=== PATIENT | male | born 1960 | race Caucasian/White ===

== ENCOUNTER 2018-03-31 14:57 | Inpatient (IN) ==
[2018-03-31] MEDS ORDERED: *HR* Heparin 5,000 UNIT/ML VIAL IVP ONE (20:55)
[2018-03-31] MEDS ORDERED: Dextrose Gel 15 GM/37.5 ML TUBE PO PRN ×2 (20:55)
[2018-03-31] MEDS ORDERED: *HR* Dextrose 50 % in Water (Syg) 50 ML SYRINGE IVP PRN (20:55)
[2018-03-31] MEDS ORDERED: *HR* Heparin 5,000 UNIT/ML VIAL IVP PRN ×2 (20:55)
[2018-03-31] MEDS ORDERED: D5% in Water 1,000 ML IVC PRN (20:55)
[2018-03-31] MEDS ORDERED: Nitroglycerin 0.4 MG TAB.SUBL SL PRN (21:04)
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
[2018-03-31] MEDS: Heparin 25,000 UNIT/500 ML D5W 25,000 UNIT/500 ML BAG IVC SCH (22:46)
[2018-04-01] MEDS: Insulin LISPRO 300 UNITS/3 ML VIAL SQ SCH ×5 (01:21→21:00)
[2018-04-01 05:10] LABS: Basophils % 0.3 %; Eosinophils # 0.1 K/mcL (0.0-0.6); Eosinophils % 1.8 %; Hematocrit 41.2 % (37.5-50.1); Immature Granulocytes % 0.4 % (0-4); Lymphocytes # 1.2 K/mcL (0.6-4.6); Lymphocytes % 16.1 %; Mean Corpuscular Volume 91.4 fL (83.0-100.0); Mean Platelet Volume 10.3 fL (9.4-12.4); Monocytes # 0.6 K/mcL (0.0-1.3); Monocytes % 8.1 %; Neutrophils # 5.4 K/mcL (1.6-8.9); Platelet Count 222 K/mcL (140-400); Red Blood Count 4.51 M/mcL (4.19-5.50); Red Cell Distribution Width 12.1 % (11.5-14.5); Segmented Neutrophils % 73.3 %
[2018-04-01 05:15] LABS: INR 0.9; Prothrombin Time 9.9 Seconds (9.4-12.1)
[2018-04-01 05:30] LABS: Alanine Aminotransferase 122 Units/L (7-52); Albumin 4.3 g/dL (3.5-5.7); Albumin/Globulin Ratio 1.8 (1.1-2.2); Alkaline Phosphatase 73 Units/L (34-104); Aspartate Amino Transferase 76 Units/L (13-39); BUN/Creatinine Ratio 17 (6-26); Bilirubin,Total 1.2 mg/dL (0.3-1.0); Blood Urea Nitrogen 14 mg/dL (6-20); Calcium 9.3 mg/dL (8.6-10.3); Carbon Dioxide 23 mEq/L (23-29); Chloride 105 mEq/L (98-107); Globulin 2.4 g/dL (2.4-3.5); Glucose 226 mg/dL (70-105); Magnesium 2.1 mg/dL (1.6-2.6); Osmolality,Calculated 292 (280-300); Potassium 4.4 mEq/L (3.5-5.1); Sodium 137 mEq/L (136-145); Total Protein 6.7 g/dL (6.4-8.9); eGFR For Non-African Americans > 60 (> 60)
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
--- NOTE | 2018-04-01 08:51 | Event Note ---
Date of Encounter: 04/01/18 Time of Encounter: 08:50 - Cardiology Event Note Discussed with Dr. Gillis, plan for left heart catheterization today.
[2018-04-01] MEDS: Isosorbide MONOnitrate (24 HR) 30 MG TAB.ER.24H PO SCH (08:53)
[2018-04-01] MEDS: Aspirin Enteric Coated 81 MG Tablet PO SCH (08:53)
--- NOTE | 2018-04-01 09:18 | Pre-Sedation Evaluation ---
Pre-sedation evaluation - Pre-sedation checklist Date of procedure: 04/01/18 Procedure: LEFT HEART CATHETERIZATION Recent Vitals: Last Vital Signs Temp 97.6 F 04/01/18 04:00 Pulse 72 04/01/18 06:58 Resp 18 04/01/18 06:58 BP 130/81 04/01/18 06:58 Pulse Ox 99 04/01/18 06:58 H&P (including ROS) documented in medical record: Yes Previous reaction to sedatives/anesthetics: No Dietary Status: NPO after Midnight ASA Classification *see protocol: CLASS II-Mild systemic disease Cardiac Registry (Cardio Only) - Functional Capacity Functional Capacity: >=4 METS with symptoms - Clincal Frailty Scale Clinical Frailty Scale: Vulnerable
[2018-04-01] MEDS ORDERED: *HR* Midazolam HCl 2 MG/2 ML VIAL ONE (09:53)
[2018-04-01] MEDS ORDERED: Nitroglycerin 1,000 MCG/10 ML VIAL IV ONE (09:54)
[2018-04-01] MEDS ORDERED: ISOVUE-370 200 ML INFUS..BTL IV ONE ×2 (09:54→10:44)
[2018-04-01] MEDS ORDERED: *HR* Heparin 10,000 UNIT/10 ML VIAL ONE (09:54)
[2018-04-01] MEDS ORDERED: Heparin 1,000 UNITS/500 mL 500 ML ONE (09:54)
[2018-04-01] MEDS ORDERED: *HR* FentaNYL (PF) 100 MCG/2 ML VIAL ONE (09:54)
[2018-04-01] MEDS ORDERED: 0.9 % Sodium Chloride 1,000 ML ONE (09:54)
[2018-04-01] MEDS ORDERED: Tirofiban 12.5 MG/250ML 12.5 MG/250 ML BAG ONE (10:28)
[2018-04-01] MEDS ORDERED: *HR* Ticagrelor 90 MG TABLET ONE (10:55)
--- NOTE | 2018-04-01 11:13 | Invasive Diagnostic Lab Proc ---
Name: Alcides De Jesus Date of Study: 04/01/2018 Date: 1960 Ht: 70.1in Medical Record#: [id number] Age: 57 Wt: 200.62lb Gender: Male BSA: 2.09 Order #: [id number] BMI: 28.72 Physicians Procedure Physician: Melvina Gillis MD Referring MD: Referring MD: Staff Name Position Time In Karen Cary RT (R) Monitor 10:10 AM Juhi Ambrose RT (R) Scrub 10:11 AM Jenaro Conway RN Blood Collector 10:11 AM Indications Indication Non-Stemi Procedures Performed Procedure L HRT ARTERY/VENTRICLE ANGIO PRQ CARD RAFAL STENT W/ANGIO 1 VSL Pre-Procedure Checklist Informed consent is complete signed and on chart. H&P is on chart. ID band is on and ID verified with patient. Patient NPO for procedure The procedure was described for the patient and questions were answered. ECG is on chart. Plan of Care Patient will tolerate the procedure without complications. Adequate level of comfort will be maintained. Hemodynamics will remain stable Patient will recover from procedure without complications. Respiratory function will be maintained. Cardiac rhythm will remain stable. Patient temperature will be maintained. Patient and/or family have verbalized understanding of the procedure. Patient Education Chief Complaint/Reason for Test: Cardiac Cath Developmental Category: Adult (18-64 years) Developmentally Appropriate for Age: Yes Learning Barriers: None Education Needs: Procedure Education Method: Verbal Information Taught: Cardiac Cath Educational Evaluation: Able to repeat information Intravenous Access Time IV Size Location DC'd Fluid/Drip Rate Units RN 11:00 PM 20g 1 /" Patent On Arrival 0.9NaCl ml/hr Allergies No Known Allergies Vital Signs Time BP (mmHg) HR (bpm) O2 Sat. RR (bpm) LOC 10:12 AM / % 5 = Fully awake and oriented or at pre-proc level 10:12 AM / % 4 = Oriented but drowsy 10:27 AM / % 4 = Oriented but drowsy 10:09 AM 140 / 81 57 99 % 17 10:13 AM 124 / 71 62 93 % 19 10:18 AM 122 / 76 64 96 % 25 10:23 AM 128 / 76 64 96 % 16 10:28 AM 120 / 71 64 97 % 21 10:33 AM 117 / 68 62 94 % 16 10:38 AM 118 / 69 60 96 % 17 10:43 AM 125 / 74 63 92 % 15 10:48 AM 119 / 65 66 91 % 15 10:53 AM 119 / 71 61 95 % 14 Procedural Medications Time Medication Dose Units Method Given By 10:11 AM Oxygen 2 L/min nasal cannula Jeffrey Gillis MD 10:12 AM Versed 1 mg Intravenous Jenaro Conway RN 10:12 AM Fentanyl 50 mcg Intravenous Jenaro Conway RN 10:15 AM Lidocaine 2% 10 ml Subcutaneous Tarek MD Carlin 10:30 AM Heparin 4000 units Intravenous Jenaro Conway RN 10:30 AM Aggrastat Bolus: 46 ml Intravenous Jenaro Conway RN 10:30 AM Aggrastat 12.5mg/250ml 16.5 ml Intravenous Jenaro Conway RN 10:39 AM Fentanyl 50 mcg Intravenous Jenaro Conway RN 10:51 AM Brilinta 180 mg Orally Jenaro Conway RN ASA Classification: CLASS II- Mild systemic disease (i.e. well-controlled diabetes, hypertension, asthma, cigarette smoking) Ernst Score Preprocedure Postprocedure Activity 2- Moves 4 extremities sustained head lift Activity 2- Moves 4 extremities sustained head lift Circulation 2- SBP +/= 20 points of pre-anesthetic level Circulation 2- SBP +/= 20 points of pre-anesthetic level Consciousness 2- Awake and alert oriented x 3 Consciousness 2- Awake and alert oriented x 3 O2 Saturation 2- Able to maintain O2 satruation of 92% on room air O2 Saturation 2- Able to maintain O2 satruation of 92% on room air Respiratory 2- Able to deep breathe and cough well Respiratory 2- Able to deep breathe and cough well Total Score 10 Total Score 10 Contrast Agent: Isovue Diagnostic Contrast: 183 ml Total Contrast: 183 ml Fluoro Dose: 74327 mGy Activated Clotting Time Time Seconds to Clot 10:30 AM 153 Procedure Log Time Note Enter By 10:08 AM CathStat 10:08 AM Vitals capture started with the following parameters, Patient=Adult, Interval=5 min, Initial Avfcthnw=854 mmHg, Deflation Rate=5 mmHg, Cuff placed on Right Arm 10:09 AM HR=57 bpm, PVCM=284/81 mmhg, SpO2=99.0 %, Resp=17 B/min, Comment=NSR 10:10 AM Recorded ECG: HR=58 Condition=Condition 1 10:10 AM Pt arrived to at 10:10 [email or web address] 10:11 AM Karen Cary RT (R) Position: Monitor Time in: 10:10 [email or web address] 10:11 AM Juhi Ambrose RT (R) Position: Scrub Time in: 10:11 [email or web address] 10:11 AM Jenaro Conway RN Position: Blood Collector Time in: 10:11 [email or web address] 10:11 AM Patient charges- Angio tray pack, Navilyst 3mm J, Pulse Oximetry and ACIST tubing and transducer [email or web address] 10:11 AM Case Delayed No [email or web address] 10:11 AM Hair removed from procedure site in holding area using clippers. Bilateral groin prepped with Chloraprep by Karen Cary RT (R), then patient was draped. Skin intact. [email or web address] 10:11 AM Physician arrived 10:11 [email or web address] 10:11 AM ASA Class CLASS II- Mild systemic disease (i.e. well-controlled diabetes, hypertension, asthma, cigarette smoking) [email or web address] 10:11 AM Meet and lilo completed [email or web address] 10:11 AM Sign in performed according to hospital policy. [email or web address] 10:11 AM Procedure start 10:11 [email or web address] 10:11 AM Time: 10:11 Oxygen on at 2 L/min per nasal cannula by Jeffrey Gillis MD [email or web address] 10:12 AM Time: 10:12 Versed 1 mg Intravenous Given by Jenaro Conway RN [email or web address] 10:12 AM Time: 10:12 Fentanyl 50 mcg Intravenous Given by Jenaro Conway RN [email or web address] 10:12 AM Time: 10:12 Patient comfortable and pain free: Yes [email or web address] 10:12 AM Time: 10:12LOC: 5 = Fully awake and oriented or at pre-proc level [email or web address] 10:13 AM HR=62 bpm, VWDH=173/71 mmhg, SpO2=93.0 %, Resp=19 B/min, EtCO2=22 mmHg, Comment=NSR 10:15 AM Pressure channel 1 zeroed. 10:15 AM Time out performed according to hospital policy [email or web address] 10:15 AM Time: 10:15 10 ml Lidocaine 2% to right groin Subcutaneous Given by Melvina Gillis MD [email or web address] 10:17 AM Micro-Introducer Kit utilized for sheath placement [email or web address] 10:17 AM Unsuccessful access attempt # 1 into the right Femoral artery. Manual pressure applied to achieve hemostasis.. [email or web address] 10:18 AM 4mls contrast injected into Rt groin. [email or web address] 10:18 AM Pressure channel 1 zeroed. 10:18 AM HR=64 bpm, ZCFS=940/76 mmhg, SpO2=96.0 %, Resp=25 B/min, EtCO2=21 mmHg, Comment=NSR 10:19 AM Access obtained by percutaneous puncture. 6Fr 10cm Terumo [place] sheath placed in right Femoral artery. [id number] [email or web address] 10:19 AM 0.035 145cm Navilyst 3mmJ wire [id number] [email or web address] 10:19 AM 5Fr FR 4 catheter inserted over the wire DN [email or web address] 10:20 AM RCA angiography performed in multiple views. [email or web address] 10:21 AM Recorded Pressure: Ao, HR=61, Condition=Condition 1 (Aorta) Ao 94/72/84 10:21 AM Catheter removed [email or web address] 10:21 AM 5Fr FL 4 catheter inserted over the wire DN [email or web address] 10:21 AM LCA angiography performed in multiple views. [email or web address] 10:22 AM Recorded Pressure: Ao, HR=64, Condition=Condition 1 (Aorta) Ao 96/72/84 10:23 AM HR=64 bpm, KHOO=091/76 mmhg, SpO2=96.0 %, Resp=16 B/min, Comment=NSR 10:24 AM Recorded Pressure: Ao, HR=63, Condition=Condition 1 (Aorta) Ao 99/69/83 10:25 AM Catheter removed [email or web address] 10:25 AM 5Fr Pigtail catheter inserted over the wire [facility] [email or web address] 10:26 AM Catheter selectively placed in left ventricle [email or web address] 10:26 AM Recorded Pressure: LV, HR=63, Condition=Condition 1 (Left Ventricle) LV 103/7/8 10:26 AM Bolus angiogram of left Ventricle complete: 10 ml/sec for a total of 20 mls [email or web address] 10:27 AM Recorded Pressure: LV, Ao, HR=62, Condition=Condition 1 (Left Ventricle) LV 100/4/10, (Aorta) Ao 98/64/80 10:27 AM Time: 10:12LOC: 4 = Oriented but drowsy [email or web address] 10:27 AM Time: 10:12 Patient comfortable and pain free: Yes [email or web address] 10:28 AM Catheter removed [email or web address] 10:28 AM 6Fr XB LAD 3.5 [place] Bright-Tip guide catheter was used to cannulate the PCI vessel successfully. reused? No [email or web address] 10:28 AM Inflation device was opened. [email or web address] 10:28 AM HR=64 bpm, CMKK=503/71 mmhg, SpO2=97.0 %, Resp=21 B/min, EtCO2=25 mmHg, Comment=NSR 10:30 AM .014 BMW O'Brien 190cm guide wire across target lesion- successful. reused in LAD [email or web address] 10:30 AM At 10:30 the ACT was 153 seconds. [email or web address] 10:30 AM Time: 10:30 Heparin 4000 units Intravenous Given by Jenaro Conway RN [email or web address] 10:30 AM Time: 10:30 Aggrastat Bolus: 46 ml Intravenous Given by Jenaro Conway RN Hunter pump [email or web address] 10:31 AM Time: 10:30 Aggrastat 12.5mg/250ml 16.5 ml Intravenous Given by Jenaro Conway RN Hunter pump [email or web address] 10:33 AM HR=62 bpm, INFZ=725/68 mmhg, SpO2=94.0 %, Resp=16 B/min, Comment=NSR 10:34 AM .014 [employer] O'Brien 190cm guide wire across target lesion- successful. reused? No In Ramus [email or web address] 10:36 AM 2.0 mm x 12 mm Emerge Monorail balloon across target lesion- successful. reused? No [email or web address] 10:38 AM Balloon inflated @ 6 josselyn for 12 seconds [email or web address] 10:38 AM Balloon inflated @ 6 josselyn for 6 seconds [email or web address] 10:38 AM HR=60 bpm, QGEJ=340/69 mmhg, SpO2=96.0 %, Resp=17 B/min, Comment=NSR 10:40 AM Time: 10:39 Fentanyl 50 mcg Intravenous Given by Jenaro Conway RN [email or web address] 10:40 AM Balloon catheter removed intact. [email or web address] 10:40 AM 3.5mm x 16mm Synergy drug-eluting stent across target lesion- successful Lot #[id number] [email or web address] 10:42 AM Time: 10:27 Patient comfortable and pain free: Yes [email or web address] 10:42 AM Time: 10:27LOC: 4 = Oriented but drowsy [email or web address] 10:43 AM Stent deployed @ 6 josselyn for 5 seconds [email or web address] 10:43 AM Stent balloon reinflated @ 11 josselyn for 11 seconds [email or web address] 10:43 AM HR=63 bpm, LSPV=188/74 mmhg, SpO2=92.0 %, Resp=15 B/min, Comment=NSR 10:44 AM Stent balloon reinflated @ 14 josselyn for 13 seconds [email or web address] 10:45 AM Stent delivery system removed intact. [email or web address] 10:45 AM Recorded Pressure: Ao, HR=64, Condition=Condition 1 (Aorta) Ao 98/63/80 10:48 AM Stent delivery system removed intact. [email or web address] 10:48 AM HR=66 bpm, YWIE=511/65 mmhg, SpO2=91.0 %, Resp=15 B/min, Comment=NSR 10:49 AM wires removed intact. [email or web address] 10:49 AM Guide catheter removed intact. [email or web address] 10:51 AM Time: 10:51 Brilinta 180 mg Orally Given by Jenaro Conway RN [email or web address] 10:51 AM Procedure completed at 10:51 04/01/2018 [email or web address] 10:52 AM Sign out completed: Radiation Dose 1502.59 mGy, 30632 cGy/cm2 Fluoro Time: 8.9 Isovue 370 - 200ml contrast 183 ml given by Melvina Gillis MD. Complications: NoneCardiac Rehab Consult needed: YesConfirmed administered medications: Yes [email or web address] 10:52 AM Isovue 370 - 200ml,1 Bottle(s) used. [email or web address] 10:53 AM Arterial sheath pulled, Angio-seal closure device used and was Successful S/N. [email or web address] 10:53 AM Estimated Blood Loss: minimal [email or web address] 10:53 AM Post ECG NSR [email or web address] 10:53 AM Post Blood Pressure 119/65 [email or web address] 10:53 AM Information taught Cardiac Cath and PCI [email or web address] 10:53 AM Education needs Procedure, Plan of Care, and Disease Process [email or web address] 10:53 AM Learning barriers :None [email or web address] 10:53 AM Education Methods Verbal [email or web address] 10:53 AM Education evaluation Able to repeat information [email or web address] 10:53 AM HR=61 bpm, HNRY=994/71 mmhg, SpO2=95.0 %, Resp=14 B/min, Comment=NSR 10:55 AM Coronary Dominance: Co-dominant [email or web address] 11:03 AM Report given to Jeff ESPINOZA Pt taken to 2NE Room #27. 11:03 [email or web address] 11:04 AM Site status No bleeding/hematoma - Rt Groin as reported by Sites, Juhi RT (R) at 11:03 [email or web address] 11:04 AM Opsite applied [email or web address] 11:04 AM Delay to floor No [email or web address] 11:04 AM Family placed in consult room. [email or web address] 11:04 AM Complications: None [email or web address] Complications Complication None None Hemodynamics Pressures Site Systolic/A Wave Diastolic/V Wave Mean AO 94 72 84 AO 96 72 84 AO 99 69 83 LV 103 7 8 LV 100 4 10 AO 98 64 80 AO 98 63 80 Post Procedure Information Blood Pressure: 119/65 mmHg Rhythm: NSR Post procedural instructions were given Site Checks Time Location Status Staff Sheath In? Note 11:03 AM Rt Groin No bleeding/hematoma Sites, Juhi RT (R) Pulses Time Site Pre-Procedure Post-Procedure Note Bilateral DP & PT 1+ 1+ Bilateral radial 2+ 2+ Updated by Karen Cary RT(R) on 04/01/2018 11:04:45 AM electronically signed on 04/01/2018 11:05:15 AM with status of Final
[2018-04-01] MEDS ORDERED: Tirofiban 12.5 MG/250ML 12.5 MG/250 ML BAG IVC SCH (11:15)
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
[2018-04-01] MEDS: *HR* Ticagrelor 90 MG TABLET PO SCH (21:00)
[2018-04-01] MEDS: Heparin 25,000 UNIT/500 ML D5W 25,000 UNIT/500 ML BAG IVC SCH (21:02)
[2018-04-02 05:18] LABS: Hematocrit 41.6 % (37.5-50.1); Hemoglobin 14.2 g/dL (12.9-16.9); Mean Corpuscular HGB Conc 34.1 g/dL (31.6-35.5); Mean Corpuscular Hemoglobin 32.1 pg (28.0-33.3); Mean Corpuscular Volume 93.9 fL (83.0-100.0); Mean Platelet Volume 10.2 fL (9.4-12.4); Platelet Count 186 K/mcL (140-400); Red Blood Count 4.43 M/mcL (4.19-5.50)
[2018-04-02 05:41] LABS: BUN/Creatinine Ratio 15 (6-26); Blood Urea Nitrogen 12 mg/dL (6-20); Calcium 9.1 mg/dL (8.6-10.3); Carbon Dioxide 26 mEq/L (23-29); Chloride 105 mEq/L (98-107); Glucose 177 mg/dL (70-105); Osmolality,Calculated 288 (280-300); Potassium 4.6 mEq/L (3.5-5.1); Sodium 137 mEq/L (136-145); eGFR For Non-African Americans > 60 (> 60)
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
--- NOTE | 2018-04-02 08:46 | Cardiology Progress Note ---
Date of Encounter: 04/02/18 Time of Encounter: 08:45 Assessment and Plan (1) NSTEMI (non-ST elevated myocardial infarction) Current Visit: Yes Status: Acute Per Cardiology: Troponins noted to be 2.09 and 1.52. Echo pending. S/P LHC: Impressions: There is severe one vessel coronary artery disease. The left ventricle is normal and has normal contractility EF 55% Patient had successful PTCA/Drug-Eluting Stent placement in the proximal LAD. Stent placed from a prior procedure in the Mid LAD is is patent. Lesion Findings/Interventions * Left Main Coronary Artery The LMCA is angiographically free of disease. * Left Anterior Descending There is a 16 mm long, 80% stenosis in the Proximal LAD. The lesion has a GWEN flow of 3 and has no thrombus present. An intervention was performed on the Proximal LAD with a final stenosis of 0%. There were no lesion complications. The final GWEN flow was 3. * Circumflex There is a 50% stenosis in the Proximal Circumflex. * Ramus There is a 25% stenosis in the Ramus. * Right Coronary Artery There is a 25% stenosis in the Proximal RCA. There is a 65% stenosis in the Mid RCA. On aspirin, statin, beta maru, ROSA inhibitor, long-acting nitrate, and Brilinta-- assistance card provided. We will discontinue IV heparin drip. Per discussion with Dr. Gillis and Dr. Daniel, recommend telemetry monitoring for another 24 hours. Discussed with primary service. (2) CAD (coronary artery disease) Current Visit: Yes Status: Chronic Per Cardiology: Last heart catheterization October 2015 with proximal LAD 50-60% lesion with FFR 0.83, ramus 40-50% lesion with FFR 1.0, proximal RCA 30%, mid RCA 30%, distal RCA 30% lesions. Qualifiers: Coronary Disease-Associated Artery/Lesion type: [place] artery [place] vs. transplanted heart: [place] heart Associated angina: with unstable angina Qualified Code(s): I25.110 - Atherosclerotic heart disease of [place] coronary artery with unstable angina pectoris Discussion w patient/family: The assessment and plan as outlined above was discussed with the patient and/or family members who expressed understanding and agreement. All questions were answered. Thank you for involving us in the care of your patient. Please call with any questions. Subjective Principal diagnosis: NSTEMI Interval history: Patient seen today with at bedside and echo and process. Patient denies any chest pain shortness of breath or palpitations. Denies any dizziness. Denies concerns from his right groin site. Objective Selected Entries 04/02/18 00:58 04/02/18 04:00 Temperature 98.0 F Pulse Rate 60 Respiratory Rate 15 Blood Pressure 105/66 O2 Sat by Pulse Oximetry 98 Oxygen Delivery Method Room Air General: Conversant, No Apparent Distress HEENT: Atraumatic, Normocephaly, Mucus Membranes Moist Neck: No JVD, Normal carotid pulses Cardiac: Reg Rate and Rhythm, Normal S1 and S2, No Murmur Lungs: Normal Breath Sounds, No Wheeze, Rales, Rhonchi Neuro: Alert and responsive, No focal deficits noted Abdomen: Soft, Non-Tender Skin: No rashes noted on visualized skin, Other (Right groin site dry and intact , no hematoma, no bleeding, no ecchymosis, right PT and DP pulses 2+ palpable) Musculoskeletal: No Chest Wall Tenderness Extremities: No Clubbing, No Cyanosis, No Edema, Normal Pulses Results 04/02/18 05:05 04/02/18 05:05 Lab Results Laboratory Tests 04/02/18 05:05 Creatinine 0.81 Est GFR (Non-Af Amer) > 60 Active Medications Aspirin (Aspirin Ec) 81 mg PO DAILY MALATHI Stop: 10/01/18 09:01 Last Admin: 04/01/18 08:53 Dose: 81 mg Atorvastatin Calcium (Lipitor) 80 mg PO HS MALATHI Stop: 09/30/18 21:46 Last Admin: 04/01/18 21:00 Dose: 80 mg Dextrose/Water (Dextrose 50% (Syg)) 25 ml IVP AD PRN PRN Reason: Hypoglycemia Stop: 09/30/18 20:56 Glucagon (Glucagen) 1 mg IM ONCE PRN PRN Reason: Hypoglycemia Stop: 09/30/18 20:56 Glucose (Gluctose) 15 gm PO ONCE PRN PRN Reason: Hypoglycemia Stop: 09/30/18 20:56 Glucose (Gluctose) 30 gm PO ONCE PRN PRN Reason: Hypoglycemia Stop: 09/30/18 20:56 Heparin Sodium (Porcine) (Heparin) 4,000 unit IVP Q6HR PRN PRN Reason: SEE COMMENTS Stop: 09/30/18 20:56 Heparin Sodium (Porcine) (Heparin) 2,000 unit IVP Q6H PRN PRN Reason: SEE COMMENTS Stop: 09/30/18 20:56 Dextrose (Dextrose 5%) 1,000 mls @ 100 mls/hr IVC .Q10H PRN PRN Reason: HYPOGLYCEMIA Stop: 09/30/18 20:56 Heparin Sodium/Dextrose (Heparin 25,000 Unit/500 Ml D5w) 25,000 unit in 500 mls @ 21.72 mls/hr IVC .Q23H2M MALATHI; 12 UNIT/KG/HR PRN Reason: Protocol Stop: 09/30/18 21:01 Last Admin: 04/01/18 21:02 Dose: Not Given Insulin Human Lispro (Humalog) 0 units SQ HS MALATHI PRN Reason: Protocol Stop: 10/01/18 21:01 Last Admin: 04/01/18 21:00 Dose: Not Given Insulin Human Lispro (Humalog) 0 units SQ TIDAC MALATHI PRN Reason: Protocol Stop: 10/01/18 16:31 Last Admin: 04/01/18 17:26 Dose: 6 units Isosorbide Mononitrate (Imdur) 30 mg PO DAILY [facility] Stop: 10/01/18 09:01 Last Admin: 04/01/18 08:53 Dose: 30 mg Lisinopril (Zestril) 5 mg PO DAILY MALATHI PRN Reason: Protocol Stop: 10/01/18 09:01 Last Admin: 04/01/18 08:53 Dose: 5 mg Metoprolol Tartrate (Lopressor) 12.5 mg PO BID [facility] Stop: 10/01/18 09:01 Last Admin: 04/01/18 21:00 Dose: 12.5 mg Nitroglycerin (Nitroglycerin) 0.4 mg SL AD PRN PRN Reason: Chest Pain Stop: 09/30/18 21:05 Ticagrelor (Brilinta) 90 mg PO BID [facility] Stop: 10/01/18 21:01 Last Admin: 04/01/18 21:00 Dose: 90 mg - Imaging and Cardiology Echo: pending Cardiac cath: report reviewed Other Results: CD pending - EKG Interpretation EKG results cardiology: other (Telemetry reviewed with temperature rate 64, sinus rhythm, no events noted) - VTE Reasons for not Prescribing Prophylaxis: Not indicated-Anticoagulated or INR therapeutic Consult Discharge Plan - Plan Additional Instructions: Follow-up with your primary care provider within one week of discharge. Follow-up with cardiology. Please take all your medications as prescribed. Please return to the emergency department immediately if your symptoms return. please stop plavix. start Brilinta, and take with aspirin-prescriptions given. Referrals: Yesenia Mares MD [Primary Care Provider] - Melvina Gillis [Partnered Physician] - Prescriptions: Aspirin Enteric Coated [Aspirin EC] 81 mg PO DAILY #30 tablet. Metoprolol [Lopressor] 12.5 mg PO BID #60 tablet Ticagrelor [Brilinta] 90 mg PO BID #60 tablet
[2018-04-02] MEDS: *HR* Ticagrelor 90 MG TABLET PO SCH ×2 (09:22→22:03)
[2018-04-02] MEDS: Aspirin Enteric Coated 81 MG Tablet PO SCH (09:22)
[2018-04-02] MEDS: Isosorbide MONOnitrate (24 HR) 30 MG TAB.ER.24H PO SCH (09:22)
[2018-04-02] MEDS: Insulin LISPRO 300 UNITS/3 ML VIAL SQ SCH ×4 (09:24→22:04)
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
[2018-04-02] MEDS: *HR* Heparin 5,000 UNIT/ML VIAL SQ SCH ×2 (17:01→22:02)
[2018-04-03] MEDS: *HR* Heparin 5,000 UNIT/ML VIAL SQ SCH (05:29)
[2018-04-03 06:23] LABS: Chol/HDL Ratio 3.8 (0-4.9)
[2018-04-03 06:47] VITALS: BP 138/91
--- NOTE | 2018-04-03 08:30 | Cardiology Progress Note ---
Date of Encounter: 04/03/18 Time of Encounter: 08:30 Assessment and Plan (1) NSTEMI (non-ST elevated myocardial infarction) Current Visit: Yes Status: Acute Per Cardiology: Troponins noted to be 2.09 and 1.52. Echo pending. S/P LHC: Impressions: There is severe one vessel coronary artery disease. The left ventricle is normal and has normal contractility EF 55% Patient had successful PTCA/Drug-Eluting Stent placement in the proximal LAD. Stent placed from a prior procedure in the Mid LAD is is patent. Lesion Findings/Interventions * Left Main Coronary Artery The LMCA is angiographically free of disease. * Left Anterior Descending There is a 16 mm long, 80% stenosis in the Proximal LAD. The lesion has a GWEN flow of 3 and has no thrombus present. An intervention was performed on the Proximal LAD with a final stenosis of 0%. There were no lesion complications. The final GWEN flow was 3. * Circumflex There is a 50% stenosis in the Proximal Circumflex. * Ramus There is a 25% stenosis in the Ramus. * Right Coronary Artery There is a 25% stenosis in the Proximal RCA. There is a 65% stenosis in the Mid RCA. On aspirin, statin, beta maru, ROSA inhibitor, long-acting nitrate, and Brilinta-- assistance card provided. Echo showed EF preserved 65%. No events noted on telemetry. Ambulating hallway with no concerns. Cardiology signoff, reconsult as needed, follow-up arranged. All questions answered. Discussed with primary service. (2) CAD (coronary artery disease) Current Visit: Yes Status: Chronic Per Cardiology: Last heart catheterization October 2015 with proximal LAD 50-60% lesion with FFR 0.83, ramus 40-50% lesion with FFR 1.0, proximal RCA 30%, mid RCA 30%, distal RCA 30% lesions. Qualifiers: Coronary Disease-Associated Artery/Lesion type: [place] artery [place] vs. transplanted heart: [place] heart Associated angina: with unstable angina Qualified Code(s): I25.110 - Atherosclerotic heart disease of [place] coronary artery with unstable angina pectoris Discussion w patient/family: The assessment and plan as outlined above was discussed with the patient and/or family members who expressed understanding and agreement. All questions were answered. Thank you for involving us in the care of your patient. Please call with any questions. Subjective Principal diagnosis: NSTEMI Interval history: Patient seen today with at bedside and echo and process. Patient denies any chest pain shortness of breath or palpitations. Denies any dizziness. Denies concerns from his right groin site. Objective Vital Signs, Last 4 Hours Temp Pulse Resp BP Pulse Ox 04/03/18 06:39 98.0 F 61 18 138/91 94 General: Conversant, No Apparent Distress HEENT: Atraumatic, Normocephaly, Mucus Membranes Moist Neck: No JVD, Normal carotid pulses Cardiac: Reg Rate and Rhythm, Normal S1 and S2, No Murmur Lungs: Normal Breath Sounds, No Wheeze, Rales, Rhonchi Neuro: Alert and responsive, No focal deficits noted Abdomen: Soft, Non-Tender Skin: No rashes noted on visualized skin Musculoskeletal: No Chest Wall Tenderness Extremities: No Clubbing, No Cyanosis, No Edema, Normal Pulses Results 04/02/18 05:05 04/02/18 05:05 Laboratory Tests 04/03/18 05:42 LDL Cholesterol, Calc [address] 03/31/18 21:07 IMPRESSION: No evidence of acute intracranial abnormality. D/ /31/2018 22:12:41 Marcelino Rascon MD / [facility] Interpreting Provider: Marcelino Rascon MD Echocardiogram 04/02/18 11:03 Impressions: LVEF 65%. Mild left ventricular diastolic dysfunction. Normal right ventricular structure and function. Unable to estimate RVSP due to lack of TR jet. Mild pulmonic regurgitation. Left Ventricular Wall Motion: Rest Echo Findings All wall segments showed normal motion. Findings: Study Quality * Technically adequate exam. ECG Findings * Normal sinus rhythm. Left Ventricle * LVEF 65%. * Normal LV chamber size, wall thickness and function. * Mild left ventricular diastolic dysfunction. Right Ventricle * Normal right ventricular structure and function. Left Atrium * Normal left atrial size. Right Atrium * Normal right atrial size. Interatrial Septum * No evidence of PFO by color Doppler. Aortic Valve * Trileaflet aortic valve. * Trileaflet aortic valve with normal function. * No aortic regurgitation. * No aortic stenosis. Mitral Valve * Normal mitral valve structure and function. * No mitral regurgitation. * No mitral stenosis. Tricuspid Valve * Normal tricuspid valve structure and function. * No tricuspid regurgitation. * No tricuspid stenosis. * Unable to estimate RVSP due to lack of TR jet. Pulmonic Valve * Mild pulmonic regurgitation. * Pulmonic valve not well visualized. Aorta * Normally sized aortic root. Pericardium * The pericardium appears normal. IVC * Normal IVC dimensions and inspiratory collapse. Pulmonary Artery * Pulmonary artery not well visualized. Active Medications Aspirin (Aspirin Ec) 81 mg PO DAILY [facility] Stop: 10/01/18 09:01 Last Admin: 04/02/18 09:22 Dose: 81 mg Atorvastatin Calcium (Lipitor) 80 mg PO HS [facility] Stop: 09/30/18 21:46 Last Admin: 04/02/18 22:03 Dose: 80 mg Dextrose/Water (Dextrose 50% (Syg)) 25 ml IVP AD PRN PRN Reason: Hypoglycemia Stop: 09/30/18 20:56 Glucagon (Glucagen) 1 mg IM ONCE PRN PRN Reason: Hypoglycemia Stop: 09/30/18 20:56 Glucose (Gluctose) 15 gm PO ONCE PRN PRN Reason: Hypoglycemia Stop: 09/30/18 20:56 Glucose (Gluctose) 30 gm PO ONCE PRN PRN Reason: Hypoglycemia Stop: 09/30/18 20:56 Heparin Sodium (Porcine) (Heparin) 5,000 unit SQ Q8HCO [facility] Stop: 10/02/18 14:01 Last Admin: 04/03/18 05:29 Dose: 5,000 unit Dextrose (Dextrose 5%) 1,000 mls @ 100 mls/hr IVC .Q10H PRN PRN Reason: HYPOGLYCEMIA Stop: 09/30/18 20:56 Insulin Human Lispro (Humalog) 0 units SQ [facility] PRN Reason: Protocol Stop: 10/01/18 21:01 Last Admin: 04/02/18 22:04 Dose: Not Given Insulin Human Lispro (Humalog) 0 units SQ TIDAC [facility] PRN Reason: Protocol Stop: 10/01/18 16:31 Last Admin: 04/02/18 17:02 Dose: 8 units Isosorbide Mononitrate (Imdur) 30 mg PO DAILY [facility] Stop: 10/01/18 09:01 Last Admin: 04/02/18 09:22 Dose: 30 mg Lisinopril (Zestril) 5 mg PO DAILY [facility] PRN Reason: Protocol Stop: 10/01/18 09:01 Last Admin: 04/02/18 09:22 Dose: 5 mg Metoprolol Tartrate (Lopressor) 12.5 mg PO BID [facility] Stop: 10/01/18 09:01 Last Admin: 04/02/18 22:03 Dose: 12.5 mg Nitroglycerin (Nitroglycerin) 0.4 mg SL AD PRN PRN Reason: Chest Pain Stop: 09/30/18 21:05 Ticagrelor (Brilinta) 90 mg PO BID [facility] Stop: 10/01/18 21:01 Last Admin: 04/02/18 22:03 Dose: 90 mg - Imaging and Cardiology Echo: report reviewed Cardiac cath: report reviewed - EKG Interpretation EKG results cardiology: other (Telemetry reviewed with hours past 12 hours 65, occasional rare PVCs, no significant arrhythmias noted) - VTE Reasons for not Prescribing Prophylaxis: Not indicated-Anticoagulated or INR therapeutic Consult Discharge Plan - Plan Additional Instructions: Follow-up with your primary care provider within one week of discharge. Follow-up with cardiology. Please take all your medications as prescribed. Please return to the emergency department immediately if your symptoms return. please stop plavix. start Brilinta, and take with aspirin-prescriptions given. Referrals: Yesenia Mares MD [Primary Care Provider] - Melvina Gillis [Partnered Physician] - Prescriptions: Aspirin Enteric Coated [Aspirin EC] 81 mg PO DAILY #30 tablet. Metoprolol [Lopressor] 12.5 mg PO BID #60 tablet Ticagrelor [Brilinta] 90 mg PO BID #60 tablet
[2018-04-03] MEDS: Insulin LISPRO 300 UNITS/3 ML VIAL SQ SCH (08:49)
[2018-04-03] MEDS: *HR* Ticagrelor 90 MG TABLET PO SCH (08:49)
[2018-04-03] MEDS: Aspirin Enteric Coated 81 MG Tablet PO SCH (08:49)
[2018-04-03] MEDS: Isosorbide MONOnitrate (24 HR) 30 MG TAB.ER.24H PO SCH (08:49)
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
[2018-04-03 10:51] LABS: Estimated Average Glucose 189 mg/dl; Hemoglobin A1C 8.2 %
--- NOTE | 2018-04-03 17:49 | Electrocardiograph Report ---
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
== END 2018-04-03 11:10 | disposition home or self-care (01) | DRG 247 ==
LOC: SUATTDRO 19:56 → 2NENU 19:56
PROVIDERS: ADMIT Internal Medicine; ATTEND Family Medicine